=== PATIENT | female | born 1960 | race Caucasian/White ===

== ENCOUNTER 2019-05-29 15:21 | Inpatient (IN) | payer MEDICARE, OTHER ==
[~2019-05-29] VITALS: Ht 162.6 cm; Wt 90.0 kg
[~2019-05-29 15:21] MED LIST: ALBU90OI61 INH; ALIS150T PO; ALPR.25 PO; AMIL5 PO; AMLO10 PO; AMOCLA875 PO; ASPI325 PO; ASPI81CH PO; ASPI81EC PO; BUTALBITAL PO; BUTASPCAF PO; CALCAVITD PO; CHLO25B PO; CITA20 PO; CLON.1 PO; CLON.3 PO; CYPR4 PO; DIPH50 PO; ENOX100I INJ; EPIN.3I IM; EPLE25 PO; ESZO1 PO; FLUSAL2505 INH; FLUT.05NI; FLUT44OIA IH; FURO20 PO; GUAI600T33 PO; HEARTBURN RELI150 M1 PO; HYDACE5325 PO; HYDCHL25 PO; HYDR10 PO; ISOMON20 PO; ISOMON60ER PO; LABE200 PO; LEVA1.25 IH; MAGN84 PO; MEDR10 PO; MELA3 PO; META800 PO; METDOP250 PO; METO25 PO; Mucinex100 MG PO; NAPR500 PO; NEBI10 PO; NITR.2TP TOP; NITR.3SL SL; NITR.4TPA TOP; NITR.6SL SL; NITRSPRAY SL; NORT10 PO; OLME40 PO; OMEP20ER PO; ONDA4ODT MM; ONDA8ODT MM; OXYACE5T PO; PANT40 PO; POTA10T PO; POTCHL20ER PO; PRED10 PO; PRED20 PO; PROBIOTIC1 EAC1 PO; PROC10 PO; PROM25 PO; RANI150 PO; RXONDA4ODT MM; SPIR25 PO; SPIR50 PO; SUCR1 PO; TELM20 PO; TELM40 PO; TENEX1 MG PO; TOPI100 PO; TRAM50 PO; VALS80 PO; WARF2 PO; WARF4 PO; ZOLP10 PO; [UNRECOGNIZED DRUG - REMARK]
[2019-05-29] MEDS ORDERED: NITR.4SL SL (15:50)
[2019-05-29] MEDS ORDERED: Inspra50 MG PO (15:50)
[2019-05-29] MEDS ORDERED: CETI5 PO (15:51)
[2019-05-29] MEDS ORDERED: POTA10T PO (15:51)
[2019-05-29] MEDS ORDERED: FURO40 PO (15:51)
[2019-05-29] MEDS ORDERED: VENL150ER PO (15:51)
[2019-05-29] MEDS ORDERED: PROM25 PO (15:51)
[2019-05-29] MEDS ORDERED: Cartia Xt240 MG PO (15:51)
[2019-05-29] MEDS ORDERED: PANT40 PO (15:52)
[2019-05-29] MEDS ORDERED: PILO5 PO (15:52)
[2019-05-29] MEDS ORDERED: TRAZ50 PO (15:52)
[2019-05-29] MEDS ORDERED: TOPI100 PO (15:52)
[2019-05-29] MEDS ORDERED: TIOT18 INH (15:53)
[2019-05-29 16:03] LABS: Source, Urine Clean Catch
[2019-05-29 16:07] LABS: Blood, Urine 4+ (Neg); Glucose Qualitative, Urine Neg (Neg); Ketones, Urine 1+ (Neg); Leukocyte Esterase, Urine 3+ (Neg); Nitrite, Urine Pos (Neg); Protein, Urine 3+ (Neg); Urobilinogen, Urine 4+ (Normal)
[2019-05-29 16:09] LABS: BASOPHILS ABSOLUTE AUTO 0.02 K/mm3 (0.00-0.23); BASOPHILS PERCENT AUTO 0 % (0-2); EOSINOPHILS ABSOLUTE AUTO 0.03 K/mm3 (0.00-0.68); EOSINOPHILS PERCENT AUTO 0 % (0-6); Hematocrit 43.9 % (33.0-51.0); Hemoglobin 14.8 g/dL (11.5-16.0); IMMATURE GRAN ABSOLUTE AUTO 0.09 K/mm3 (0.00-0.10); IMMATURE GRAN PERCENT AUTO 1 % (0-1); LYMPHOCYTES ABSOLUTE AUTO 0.34 K/mm3 (0.84-5.20); LYMPHOCYTES PERCENT AUTO 3 % (21-46); MONOCYTES PERCENT AUTO 6 % (4-13); Mean Corpuscular HGB 35.2 pg (26.0-34.0); Mean Corpuscular HGB Conc 33.7 g/dL (31.5-36.5); Mean Corpuscular Volume 105 fL (80-100); Mean Platelet Volume 11.5 fL (9.1-12.4); NEUTROPHILS ABSOLUTE AUTO 11.05 K/mm3 (1.96-9.15); NEUTROPHILS PERCENT AUTO 90 % (41-73); Platelet Count 81 K/mm3 (150-400); RDW Standard Deviation 50.2 fL (35.1-46.3); White Blood Cell Count 12.23 K/mm3 (4.00-11.30)
[2019-05-29 16:17] LABS: Appearance, Urine Cloudy (Clear); Bilirubin, Urine 2+ (Neg); Color, Urine Orange (P-Yellow)
[2019-05-29 16:18] LABS: Bacteria Many /hpf; Red Blood Cells, Urine TNTC /hpf (0-2); Squamous Epithelial Cells Few /hpf (Few); White Blood Cells, Urine TNTC /hpf (0-5)
[2019-05-29 16:28] LABS: Alanine Aminotransfer (ALT/SGP 37 U/L (12-78); Albumin, Blood 2.7 g/dL (3.4-5.0); Albumin/Globulin Ratio 0.6 (0.8-1.8); Alk Phos 150 U/L (50-136); Anion Gap 8 mmol/L (6-16); Aspartate Aminotrans (AST/SGOT 46 U/L (12-37); Blood Urea Nitrogen 18 mg/dL (8-24); Bun/Creatinine Ratio 21.5 (12.0-20.0); CO2, Blood 23 mmol/L (21-32); Calcium, Blood 9.5 mg/dL (8.5-10.1); Chloride, Blood 104 mmol/L (98-108); Creatinine, Blood 0.84 mg/dL (0.40-1.00); Globulin, Blood 4.7 g/dL (2.2-4.0); Glomerular Filtration Rate >60 (60-); Glucose, Blood 142 mg/dL (70-99); Potassium, Blood 3.6 mmol/L (3.5-5.5); Sodium, Blood 135 mmol/L (136-145); Total Protein, Blood 7.4 g/dL (6.4-8.2)
[2019-05-29] MEDS ORDERED: ASPI81CH PO (20:05)
[2019-05-29] MEDS ORDERED: ALLO300 PO (20:07)
[2019-05-29] MEDS ORDERED: CARV25 PO (20:08)
[2019-05-29] MEDS ORDERED: CHOLESTYRAMINE PO (20:11)
[2019-05-29] MEDS ORDERED: EPLE25 PO (20:12)
[2019-05-29] MEDS ORDERED: Flunisolide25 ML (20:13)
[2019-05-29] MEDS ORDERED: HYDSUL200 PO (20:15)
[2019-05-29] MEDS ORDERED: MELATONIN5 M1 PO (20:16)
[2019-05-29] MEDS ORDERED: Zantac150 MG PO (20:20)
[2019-05-29] MEDS ORDERED: SUCR1 PO (20:21)
[2019-05-30 03:25] LABS: Hematocrit 38.8 % (33.0-51.0); Mean Corpuscular HGB 34.6 pg (26.0-34.0); Mean Corpuscular HGB Conc 33.5 g/dL (31.5-36.5); Mean Corpuscular Volume 103 fL (80-100); Platelet Count 56 K/mm3 (150-400); RDW Coefficient Variation 13.1 % (11.7-14.2); RDW Standard Deviation 49.6 fL (35.1-46.3); Red Blood Cell Count 3.76 M/mm3 (3.80-5.20); White Blood Cell Count 9.92 K/mm3 (4.00-11.30)
[2019-05-30 03:47] LABS: Anion Gap 8 mmol/L (6-16); Blood Urea Nitrogen 19 mg/dL (8-24); Bun/Creatinine Ratio 21.7 (12.0-20.0); CO2, Blood 18 mmol/L (21-32); Calcium, Blood 8.5 mg/dL (8.5-10.1); Chloride, Blood 114 mmol/L (98-108); Creatinine, Blood 0.87 mg/dL (0.40-1.00); Glomerular Filtration Rate >60 (60-); Glucose, Blood 85 mg/dL (70-99); Sodium, Blood 140 mmol/L (136-145)
--- NOTE | 2019-05-30 05:32 | NUR ---
END OF SHIFT SUMMARY PT TO UNIT FROM ED. HOTN BUT IMPROVING, HAS REMAINED STABLE POST ADMIT WITH FLUIDS. PT NAUSEAS UPON ARRIVAL, PHENERGAN SUCCESFUL IN RELIEVING THIS. PT HAVING BILAT FLANK PAIN, DILAUDID ADMINISTERED. PT'S HOME CPAP SET UP, PT WORE/TOLERATED IT ALL NIGHT. PT IS VISIBLY WEAK. URINE IS DARK AND FOUL SMELLING AND CLOUDY. LACTIC TRENDING DOWN. PT HAS HAD 1000ML NS W/ 20MEQ KCL INFUSING T/O THE SHIFT. PT STATES IMPROVEMENT IN PAIN. PT DID HAVE FEVER BUT HAS BEEN AFEBRILE POPST TYLENOL. OTHEREISE, PT HAS BEEN RESTING AND USES CALL LIOGHT APPROPRIATELY. WILL CONTINUE TO MONITOR UNITL SHIFT CHANGE.
--- NOTE | 2019-05-30 14:56 | NUR ---
1450 ASSUMED CARE OF PATIENT. REPORT GIVEN BY IRVING. PT BROUGHT UP IN WC. SHE IS ALERT AND ORIENTED. IV FLUIDS RUNNING, PT TOLERATING WELL . PT RESTING IN BED, NO DISTRESS NOTED.
--- NOTE | 2019-05-30 15:06 | NUR ---
UPDATE PT ALERT AND ORIENTED. VS STABLE. TELEMETRY DISCONTINUED. PT INDEPENDENT IN ROOM. DENIES ANY PAIN. DR. RUIZ IN THIS AM WITH PLANS FOR TRANSFER TO MEDICAL FLOOR. REPORT GIVEN TO MEDICAL FLOOR RN. PT TAKEN UP BY WHEELCHAIR.
--- NOTE | 2019-05-30 16:27 | NUR ---
NO ACUTE CHANGES TO PT. SHE HAS BEEN RESTING IN BED SINCE TRANSFERRING FROM PCU. NO COMPLAINTS. CALL LIGHT WITHIN REACH.
--- NOTE | 2019-05-30 19:05 | NUR ---
ASSUMED CARE RECEIVED REPORT FROM DAY SHIFT RN, ASSUMED CARE OF PT. SITTING UP IN BED COMFORTABLY, NO S/S ACUTE DISTRESS NOTED. DENIES N/V, STATES PAIN IS IMPROVED. DENIES NEEDS AT THIS TIME CALL LIGHT AND POSSESSIONS IN REACH, WILL CONTINUE TO MONITOR.
[2019-05-31 04:29] LABS: BASOPHILS ABSOLUTE AUTO 0.02 K/mm3 (0.00-0.23); BASOPHILS PERCENT AUTO 0 % (0-2); EOSINOPHILS ABSOLUTE AUTO 0.07 K/mm3 (0.00-0.68); EOSINOPHILS PERCENT AUTO 1 % (0-6); Hematocrit 42.1 % (33.0-51.0); Hemoglobin 14.2 g/dL (11.5-16.0); Mean Corpuscular HGB 35.8 pg (26.0-34.0); Mean Corpuscular HGB Conc 33.7 g/dL (31.5-36.5); Mean Platelet Volume 11.5 fL (9.1-12.4); Platelet Count 59 K/mm3 (150-400); RDW Coefficient Variation 13.1 % (11.7-14.2); Red Blood Cell Count 3.97 M/mm3 (3.80-5.20); White Blood Cell Count 6.87 K/mm3 (4.00-11.30)
[2019-05-31 04:34] LABS: IMMATURE GRAN ABSOLUTE AUTO 0.05 K/mm3 (0.00-0.10); IMMATURE GRAN PERCENT AUTO 1 % (0-1); LYMPHOCYTES ABSOLUTE AUTO 0.44 K/mm3 (0.84-5.20); LYMPHOCYTES PERCENT AUTO 6 % (21-46); MONOCYTES ABSOLUTE AUTO 0.69 K/mm3 (0.16-1.47); MONOCYTES PERCENT AUTO 10 % (4-13); Mean Corpuscular Volume 106 fL (80-100); NEUTROPHILS PERCENT AUTO 82 % (41-73)
[2019-05-31 04:59] LABS: Alanine Aminotransfer (ALT/SGP 31 U/L (12-78); Albumin, Blood 2.3 g/dL (3.4-5.0); Albumin/Globulin Ratio 0.5 (0.8-1.8); Alk Phos 114 U/L (50-136); Anion Gap 8 mmol/L (6-16); Aspartate Aminotrans (AST/SGOT 38 U/L (12-37); Bilirubin, Total 0.8 mg/dL (0.1-1.0); Blood Urea Nitrogen 14 mg/dL (8-24); Bun/Creatinine Ratio 18.2 (12.0-20.0); CO2, Blood 19 mmol/L (21-32); Calcium, Blood 9.1 mg/dL (8.5-10.1); Chloride, Blood 113 mmol/L (98-108); Creatinine, Blood 0.77 mg/dL (0.40-1.00); Globulin, Blood 4.3 g/dL (2.2-4.0); Glomerular Filtration Rate >60 (60-); Glucose, Blood 84 mg/dL (70-99); Magnesium, Blood 1.8 mg/dL (1.6-2.4); Sodium, Blood 140 mmol/L (136-145); Total Protein, Blood 6.6 g/dL (6.4-8.2)
--- NOTE | 2019-05-31 05:48 | NUR ---
SHIFT SUMMARY PT RESTING COMFORTABLY, NO S/S ACUTE DISTRESS NOTED. MEDICATED X1 FOR PAIN, X2 FOR FEVER OF 100.3. SLEPT T/O NIGHT. NO OTHER ACUTE EVENTS NOTED T/O SHIFT. DENIES ANY NEEDS AT THIS TIME. IVF INFUSING ORDERED. CALL LIGHT, POSSESSIONS IN REACH. WILL CONTINUE TO MONITOR UNTIL DAY RN ASSUMES CARE.
--- NOTE | 2019-05-31 15:39 | NUR ---
SHIFT SUMMARY PT IS A/O X 4 WITH OCCASIONAL C/O FLANK PAIN AND PT REPORTS THAT HER PAIN MEDS ARE EFFECTIVE. SHE IS IND TO THE TOILET. IV FLUIDS ARE RUNNING ORDERED WITH NO ISSUE. C/O NAUSEA THIS MORNING SUBSIDED AFTER MEDS WERE GIVEN ORDERED. PT IS RESTING IN BED AND HAS BEEN TALKING WITH FRIENDS/FAMILY THOGUHOUT THE DAY ON THE PHONE. SHE IS ABLE TO MAKE HER NEEDS KNOWN AND CALLS FOR HELP WHEN NEEDED. CALL LIGHT IS IN REACH.
--- NOTE | 2019-06-01 04:58 | NUR ---
SHIFT SUMMARY ASSUMED CARE OF PT AT 1900. PT IS A/OX4, DENIES N/T IN EXTREMITIES. HEART SOUNDS REGULAR, LUNG SOUNDS HAE FINE CRACKLES AT THE BASES, PT EARS BIPAP AT NIGHT, DENIES CP/SOB AT THIS TIME. PT C/O PAIN IN HER LOWER BACK WHICH RADIATESDOWN HER LEGS, MEDICATED FOR PAIN X2. PT IS INDEPENDENT IN ROOM. PT HOPES TO GO HOME IN THE AM. NO ACUTE EVENTS DURING THE NIGHT. PT SLEPT MOST OF THE NIGHT EXCEPT FOR WHEN SHE HAD PAIN. CALL LIGHT IN REACH, BED IN LOWEST POSTION, WILL CONTINUE TO MONITOR UNTIL DAYSHIFT NURSE ARRIVES.
--- NOTE | 2019-06-01 17:13 | NUR ---
SHIFT SUMMARY PATIENT MEDICATED X2 FOR NAUSEA. PATIENT REPORTS PAIN IN ABDOMEN BUT DECLINES PAIN MEDICATION THIS SHIFT. KPAD GIVEN FOR COMFORT. PATIENT DENIES SHORTNESS OF BREATH. PATIENT UP INDEPENDENT IN ROOM. PATIENT HAD POOR PO INTAKE TODAY. PROBABLE DISCHARGE TOMORROW IF APPETITE IMPROVES. CALL LIGHT IN REACH
--- NOTE | 2019-06-02 04:27 | NUR ---
SHIFT SUMMARY ADMITTED FOR PYELONEPHRITIS. FULL CODE. PAIN RX ADMINISTERED ONCE AT BEGINNING OF SHIFT. NS @ 75 ML/HR INFUSING. CARDIAC DIET, INDEPENDENT, RA, HOME CPAP IN ROOM FOR PM USE. HX: GARCIA, CHF, HTN. HOPEFUL FOR DC TODAY.
[2019-06-02] MEDS ORDERED: DILT60ER PO (09:22)
[2019-06-02] MEDS ORDERED: CEFU500T30 PO (09:28)
[2019-06-02] MEDS ORDERED: Vsl#3 Capsule1 EACH PO (09:28)
--- NOTE | 2019-06-02 10:15 | NUR ---
DISCHARGE NOTE PT DISCHARGED TO HOME. PT EDUCATED ON DISCHARGE MEDICATIONS AND INSUTRUCTED TO FOLLOW UP WITH PCP WITHIN ONE WEEK. PT LEFT ROOM VIA WHEELCHAIR WITH INCOMING INSPECTOR ESCORT AT THIS TIME. ALL DISCHARGE INSTRUCTIONS DISCUSSED, ALL QUESTIONS ANSWERED. IV DC'D AND BELONGINGS RETURNED.
== END 2019-06-02 10:41 | disposition home or self-care (01) | DRG 872 ==
LOC: ER 15:21 → PCU 18:26 → MEDS 18:26 → PCU 19:49 → MEDS 05-30 14:54
PROVIDERS: Emergency Medicine; Internal Medicine; Nurse Practitioner Acute Care; ADMIT Internal Medicine
DX: A41.51 Sepsis due to Escherichia coli [E. coli] (principal); N10 Acute pyelonephritis; I50.32 Chronic diastolic (congestive) heart failure; R65.20 Severe sepsis without septic shock; I11.0 Hypertensive heart disease with heart failure; E66.01 Morbid (severe) obesity due to excess calories; M19.90 Unspecified osteoarthritis, unspecified site; M35.00 Sjogren syndrome, unspecified; J44.9 Chronic obstructive pulmonary disease, unspecified; F32.9 Major depressive disorder, single episode, unspecified; M10.9 Gout, unspecified; F03.90 Unspecified dementia, unspecified severity, without behavioral disturbance, psychotic disturbance, mood disturbance, and anxiety; K75.81 Nonalcoholic steatohepatitis (NASH); Z86.73 Personal history of transient ischemic attack (TIA), and cerebral infarction without residual deficits; K21.9 Gastro-esophageal reflux disease without esophagitis; Z86.711 Personal history of pulmonary embolism; E86.0 Dehydration; Z68.31 Body mass index [BMI] 31.0-31.9, adult
CPT/HCPCS: 36415; 71046; 80048; 80053; 81001; 83605; 83735; 85025; 85027; 87040; 87077; 87086; 87186; 93005; 93010; 94640; 94762; 96365-59; 96366; 96375; 99285-25; A9270; A9270-GY; J0696; J0744; J1170; J1650; J2405; J3480; J7030; P9612